=== PATIENT | male | born 1950 | race African-American/Black ===

== ENCOUNTER 2016-12-16 08:34 | Emergency (ER) | payer OTHER ==
[2016-12-16 08:48] VITALS: BP 144/82; PULSE 67; TEMP 98.2; BMI 22.7
[2016-12-16] MEDS ORDERED: IBUPROFEN 600 MG TABLET (FP) PO ONE ×2 (09:22→09:29)
--- NOTE | 2016-12-16 09:26 | PDOC ---
History of Present Illness - General Chief Complaint: Pain Stated Complaint: SWOLLEN RT HAND/possible insect bite Time Seen by Provider: 12/16/16 09:05 History Source: Patient Exam Limitations: No Limitations - History of Present Illness Initial Comments: 12/16/16 09:23 Patient states woke up this morning with swelling and pain to his right hand at the third MCP. Denies recent trauma, injury, changes in exercise or heavy lifting. Occurred: reports: just prior to arrival Severity: reports: mild Past History - Travel Traveled outside of the country in the last 30 days: No Close contact w/someone who was outside of country & ill: No - Past Medical History Allergies/Adverse Reactions: Allergies Allergy/AdvReac Type Severity Reaction Status Date / Time No Known Allergies Allergy Verified 12/16/16 08:38 Home Medications: Ambulatory Orders Ibuprofen 600 mg PO Q6H PRN #30 tablet 12/16/16 Thyroid Disease: Yes - Psycho/Social/Smoking Cessation Hx Suicidal Ideation: No Smoking History: Current every day smoker Number of Cigarettes Smoked Daily: 5 Information on smoking cessation initiated: Yes 'Breaking Loose' booklet given: 12/16/16 Hx Alcohol Use: Yes Drug/Substance Use Hx: No Substance Use Type: None Review of Systems - Review of Systems Able to Perform ROS?: Yes Is the patient limited Luxembourger proficient: Yes Constitutional: Yes: Symptoms Reported, Malaise HEENTM: No: Symptoms Reported Respiratory: No: Symptoms reported Integumentary: No: Symptoms Reported All Other Systems: Reviewed and Negative *Physical Exam - Vital Signs Last Vital Signs Temp Pulse Resp BP Pulse Ox 98.2 F 67 19 144/82 97 12/16/16 08:36 12/16/16 08:36 12/16/16 08:36 12/16/16 08:36 12/16/16 08:36 - Physical Exam General Appearance: Yes: Appropriately Dressed, Apparent Distress HEENT: positive: D[place], Normal ENT Inspection, TMs Normal, Pharynx Normal Neck: positive: Supple. negative: Tender Musculoskeletal: positive: Normal Inspection, Decreased Range of Motion Extremity: positive: Normal Capillary Refill, Swelling (erythema and swelling to ). negative: Normal Inspection (swellign and erythema to third MCP, no sign of puncture wound or intrusion of skin. Is tender at the MCP without streaking, erythema area to dorsum of hand approximately 4 cm), Normal Range of Motion Integumentary: positive: Normal Color, Pale, Swelling Neurologic: positive: caser up II-XII NML intact, Fully Oriented, Alert, Normal Mood/ Affect, Normal Response, Motor Strength 5/5 Progress Note - Progress Note Progress Note: X-ray negative for fractures, foreign bodies, or other bony injury. Tristen wrap applied instructed to keep hand elevated and use anti-inflammatories. Instructed to watch closely for any changes and erythema, worsened swelling or pain, return to emergency department for further evaluation *DC/Admit/Observation/Transfer Diagnosis at time of Disposition: Swelling of hand Qualifiers: Laterality: right Qualified Code(s): M79.89 - Other specified soft tissue disorders - Discharge Dispostion Disposition: HOME Condition at time of disposition: Stable Admit: No - Referrals Referrals: Joel Arana MD [Primary Care Provider] - Don Goncalves MD [Staff Physician] - - Patient Instructions Printed Discharge Instructions: DI for Hand Pain Additional Instructions: Rest, ice to area on and off for 15 minutes 4-6 times a day Avoid heavy lifting or exercise until pain and swelling is resolved or until further directed Keep area highly elevated to reduce swelling Use splints/Tristen wrap as directed Followup with orthopedist in one to 2 days if not improving, if significantly improved may wait one week for followup with orthopedist May use ibuprofen 2-200 mg tablets every 6 hours as needed for pain
== END 2016-12-16 09:39 | disposition home or self-care (01) ==
LOC: JERFT 08:34
DX: M79.89 Other specified soft tissue disorders (principal); F17.210 Nicotine dependence, cigarettes, uncomplicated
CPT/HCPCS: 73130-TC-RT; 99281-25

== ENCOUNTER → 2018-01-08 | Emergency (ER) | payer OTHER ==
[~2018-01-08] MED LIST: FOLIC ACID INJECTION - 1 MG, THIAMINE HCL 100 MG, MULTIVIT INJECTION ADULT 10 ML in SOD... IVPB ONE; HALOPERIDOL LACTATE 5 MG/ML IM ONE; HALOPERIDOL LACTATE 5 MG/ML ONE; LORazepam 2 MG/ML SDV VIAL ONE
--- NOTE | 2018-01-08 20:39 | PDOC ---
History of Present Illness - General Stated Complaint: FELL/HEAD INJURY Time Seen by Provider: 01/08/18 20:30 - History of Present Illness Initial Comments: 01/08/18 20:54 The patient is a 67 year old male with a history of thyroid disease, alcohol abuse who presents for evaluation following a presumed fall. History is limited due to the patient's acute alcohol intoxication. Per the patient's daughter, the patient fell prior to presentation in the ED at home with head trauma without LOC. The patient reports a laceration to his nose, but denies other injuries and otherwise denies fevers, chills, SOB, chest pain, nausea, vomiting, abdominal pain, or changes with urination or bowel movements. Past History - Past Medical History Allergies/Adverse Reactions: Allergies Allergy/AdvReac Type Severity Reaction Status Date / Time No Known Allergies Allergy Verified 01/08/18 20:33 Home Medications: Ambulatory Orders Ibuprofen 600 mg PO Q6H PRN #30 tablet 12/16/16 Thyroid Disease: Yes - Suicide/Smoking/Psychosocial Hx Smoking History: Current every day smoker Number of Cigarettes Smoked Daily: 5 'Breaking Loose' booklet given: 12/16/16 Hx Alcohol Use: Yes Drug/Substance Use Hx: No Substance Use Type: None Review of Systems - Review of Systems Comments:: 01/08/18 20:57 Constitutional: No fevers, chills, fatigue, malaise HEENT: Nose Laceration. No Rhinorrhea, nasal congestion, visual changes Cardiovascular: No chest pain, syncope, palpitations, lightheadedness Respiratory: No Cough, SOB, Hemoptysis, Gastrointestinal: No Abdominal pain, Nausea, Vomiting, Constipation, Diarrhea, Melena Genitourinary: No Dysuria, Frequency, Urgency, Hesitancy, Hematuria, Flank pain Musculoskeletal: No Myalgia, arthralgia Skin: No rashes, itching, bruising, pallor Neurologic: No Headache, Dizziness, Numbness, Weakness, or Tingling Psychiatric: No Hallucinations. No SI or HI *Physical Exam - Physical Exam Comments: 01/08/18 20:57 General Appearance: Nourished. Agitated on exam. Alcohol on Breath. Intoxicated. No Apparent Distress HEENT: EOMI, DAKOTA. 0.5cm superficial laceration to the bridge of the nose. Abrasion noted to the left druze. No Pharyngeal Erythema, Tonsillar Exudate, Tonsillar Erythema Neck: No Cervical Lymphadenopathy or C-spine Tenderness. Respiratory/Chest: Lungs Clear, Normal Breath Sounds. No Crackles, Rales, Rhonchi, Wheezing Cardiovascular: Regular Rhythm, Regular Rate. No Murmur, Gallops, Rubs Gastrointestinal/Abdominal: Normal Bowel Sounds, Soft. No Guarding, Rebound, Tenderness Musculoskeletal: No CVA Tenderness Extremity: Abrasion to the right elbow noted. Normal Capillary Refill Integumentary: Normal Color, Dry, Warm Neurologic: mechanical maintenance worker II-XII NML intact, Fully Oriented, Alert, Normal Mood/Affect, Normal Response, Motor Strength 5/5. Procedures - Laceration/Wound Repair Nose Wound Length: to 2.5 cm Wound Explored: clean, no foreign body present Wound's Depth, Shape: superficial, linear Irrigated w/ Saline: Yes Wound Repaired With: Dermabond Layer Closure: Yes Sterile Dressing Applied: Yes ED Treatment Course - LABORATORY CBC & Chemistry Diagram: 01/08/18 22:00 01/08/18 22:00 Medical Decision Making - Medical Decision Making 01/08/18 20:59 The patient is a 67 year old male with a history of thyroid disease, alcohol abuse who presents for evaluation following a presumed fall. The patient is acutely agitated and aggressive on exam and acutely intoxicated. He was treated with 5mg of IM haldol and 2mg of IM Ativan. We will obtain a head, neck , and facial bone ct to evaluate further for possible etiologies. We will continue to monitor and reassess while here in the ED. 01/08/18 23:40 Head, neck CT are unremarkable as preliminarily read by our traffic personnel supervisor radiologist. Facial bone CT demonstrates a depressed nasal bone fracture as preliminarily read by our traffic personnel supervisor radiologist. CBC, cmp are unremarkable. We will treat the patient with a banana bag and will monitor the patient for sobriety after which he may follow up with ENT. We discussed the results, with the patient's daughter who voiced understanding and is agreeable with the plan. Patient signed out to Dr. Rothman pending reassessment. *DC/Admit/Observation/Transfer Diagnosis at time of Disposition: Nasal bone fracture Qualifiers: Encounter type: initial encounter Fracture type: closed Qualified Code(s): S02.2XXA - Fracture of nasal bones, initial encounter for closed fracture - Discharge Dispostion Condition at time of disposition: Stable Decision to Admit order: No - Referrals Referrals: Solomon Payne MD [Staff Physician] - - Patient Instructions Printed Discharge Instructions: DI for Nose Fracture, DI for Laceration Repair With Dermabond Additional Instructions: Please return to the ER if you experience concerning or worsening symptoms including worsening pain, headache, vomiting. Your CT scan show that you have a nose fracture. You may use tylenol or ibuprofen as needed at home to help manage any pain that you have. You also had a small laceration to your nose that was repaired with dermabond. Please call to schedule a follow up appointment with our ENT specialist Dr. Payne to discuss your ER visit and further management of your symptoms. - Post Discharge Activity
[2018-01-08 20:50] VITALS: BP 134/73; PULSE 77; TEMP 98.8; BMI 22.4
[2018-01-08 22:11] LABS: BASO % 0.7 % (0-2.0); EOS % 0.6 % (0-4.5); HEMATOCRIT 30.5 % (35.4-49); HEMOGLOBIN 10.5 GM/dL (11.7-16.9); LYMPH % 14.3 % (8-40); MCH 33.5 pg (25.7-33.7); MCHC 34.6 g/dl (32.0-35.9); MEAN CELL VOLUME 96.7 fl (80-96); MEAN PLT VOLUME 6.4 fl (7.5-11.1); MONO % 3.3 % (3.8-10.2); NEUT % 81.1 % (42.8-82.8); PLATELET COUNT 296 K/MM3 (134-434); RBC 3.15 M/mm3 (4.00-5.60); RDW 12.8 % (11.9-15.9); WHITE BLOOD COUNT 8.9 K/mm3 (4.0-10.0)
[2018-01-08 22:35] LABS: ALBUMIN 3.4 g/dl (3.4-5.0); ALK PHOS 55 U/L (45-117); ANION GAP 10 MMOL/L (8-16); BILIRUBIN,TOTAL 0.8 mg/dL (0.2-1.0); BLOOD UREA NITROGEN 15 mg/dL (7-18); CALCIUM 8.4 mg/dL (8.5-10.1); CHLORIDE 110 mmol/L (98-107); CO2 24 mmol/L (21-32); GLUCOSE,RANDOM 87 mg/dL (74-106); POTASSIUM 3.3 mmol/L (3.5-5.1); SGOT/AST 22 U/L (15-37); SGPT/ALT 19 U/L (12-78); SODIUM 144 mmol/L (136-145); TOT PROT 7.1 g/dl (6.4-8.2)
--- NOTE | 2018-01-08 22:54 | PDOC ---
Attending Attestation - HPI HPI: 01/08/18 22:55 Patient is a 67 year old male with a significant past medical history of thyroid disease, alcohol abuse, who presents to the ED with complaints of injury that occurred just prior to ED arrival. As per patient's daughter, patient fell just prior to ED arrival at home, hitting his head after fall, prompting her to call EMS to have him brought to the ED for further evaluation. Denies chest pain, Sob. Denies nausea, vomiting. Denies fevers, chills. Denies dysuria, hematuria. Denies constipation, diarrhea. Denies any other symptoms. Allergies: None Social history: Current alcohol use. No smoking. No alcohol. No illicit drugs. Surgical history: None PMD: None <Horacio Lee - Last Filed: 01/08/18 22:55> - Resident Resident Name: WilmaAntonio - ED Attending Attestation I have performed the following: I have examined & evaluated the patient, The case was reviewed & discussed with the resident, I agree w/resident's findings & plan, Exceptions are as noted - Physicial Exam PE: 01/09/18 00:02 thin,intoxicated 67 yo male with AOB BIBA after falling. Daughter lives w him and called 911 01/09/18 00:04 head scalp abrasion,scalp hematoma but no laceration nasal bridge small superficial laceration,swelling neck no cervical tenderness lungs cta b/l cvs [id number] abd flat,nontender ext no edema or no deformity neuro intoxicated,no facial droop 01/10/18 02:11 - Medical Decision Making 01/09/18 01:21 ct scan head : normal exam,no acute intracranial pathology,no bleed,no mass,no shift,no skull fracture ct c spine: no fracture ct facial bones ++ nasal fracture etoh level 180 plan when pt can safely ambulate he will be discharged home <Elana Lazcano - Last Filed: 01/10/18 02:11>
--- NOTE | 2018-01-09 01:30 | PDOC ---
*Physical Exam - Vital Signs Last Vital Signs Temp Pulse Resp BP Pulse Ox 98.8 F 77 18 134/73 100 01/08/18 20:44 01/08/18 20:44 01/08/18 20:44 01/08/18 20:44 01/08/18 20:44 ED Treatment Course - LABORATORY CBC & Chemistry Diagram: 01/08/18 22:00 01/08/18 22:00 - ADDITIONAL ORDERS Additional order review: Laboratory Results 01/08/18 01/08/18 22:00 21:45 Sodium 144 Potassium 3.3 L Chloride 110 H Carbon Dioxide 24 Anion Gap 10 BUN 15 Creatinine 1.0 Creat Clearance w eGFR > 60 Random Glucose 87 Calcium 8.4 L Total Bilirubin 0.8 AST 22 ALT 19 Alkaline Phosphatase 55 Total Protein 7.1 Albumin 3.4 Alcohol, Quantitative 180.23 H* 01/08/18 22:00 RBC 3.15 L MCV 96.7 H MCHC 34.6 RDW 12.8 MPV 6.4 L Neutrophils % 81.1 Lymphocytes % 14.3 Monocytes % 3.3 L Eosinophils % 0.6 Basophils % 0.7 - Medications Given in the ED: ED Medications Discontinued Medications Generic Name Dose Route Start Last Admin Trade Name Freq PRN Reason Stop Dose Admin Haloperidol 5 mg 01/08/18 20:33 01/08/18 20:40 Haldol Injection (Fast Acting) - IM 01/08/18 20:34 5 mg ONCE ONE Administration Lorazepam 2 mg 01/08/18 20:33 01/08/18 20:40 Ativan Injection - IM 01/08/18 20:34 2 mg ONCE ONE Administration Medical Decision Making - Medical Decision Making 01/09/18 01:29 Pt signed out to sc by Dr. Dillon Will observe pt for sobriety. Pt will be d/c 01/09/18 06:52 Pt awake and alert. Is able to ambulate. No nystagmus, no slurred speech. Can be d/c home *DC/Admit/Observation/Transfer Diagnosis at time of Disposition: Nasal bone fracture Qualifiers: Encounter type: initial encounter Fracture type: closed Qualified Code(s): S02.2XXA - Fracture of nasal bones, initial encounter for closed fracture - Discharge Dispostion Disposition: HOME Condition at time of disposition: Stable - Referrals Referrals: Solomon Payne MD [Staff Physician] - - Patient Instructions Printed Discharge Instructions: DI for Nose Fracture, DI for Laceration Repair With Dermabond Additional Instructions: Please return to the ER if you experience concerning or worsening symptoms including worsening pain, headache, vomiting. Your CT scan show that you have a nose fracture. You may use tylenol or ibuprofen as needed at home to help manage any pain that you have. You also had a small laceration to your nose that was repaired with dermabond. Please call to schedule a follow up appointment with our ENT specialist Dr. Payne to discuss your ER visit and further management of your symptoms. - Post Discharge Activity
== END | disposition home or self-care (01) ==
LOC: JER 20:15
PROC: 0HQ1XZZ Repair Face Skin, External Approach (ICD-10-PCS; principal; 2018-01-08)
PROC: 3E033GC Introduction of Other Therapeutic Substance into Peripheral Vein, Percutaneous Approach (ICD-10-PCS; 2018-01-08)
PROC: 3E033GC Introduction of Other Therapeutic Substance into Peripheral Vein, Percutaneous Approach (ICD-10-PCS; 2018-01-08)
PROC: 3E023NZ Introduction of Analgesics, Hypnotics, Sedatives into Muscle, Percutaneous Approach (ICD-10-PCS; 2018-01-08)
PROC: 3E023NZ Introduction of Analgesics, Hypnotics, Sedatives into Muscle, Percutaneous Approach (ICD-10-PCS; 2018-01-08)
PROC: 3E023NZ Introduction of Analgesics, Hypnotics, Sedatives into Muscle, Percutaneous Approach (ICD-10-PCS; 2018-01-08)
PROC: 3E033GC Introduction of Other Therapeutic Substance into Peripheral Vein, Percutaneous Approach (ICD-10-PCS; 2018-01-08)
DX: F10.120 Alcohol abuse with intoxication, uncomplicated (principal); S02.2XXA Fracture of nasal bones, initial encounter for closed fracture; S01.21XA Laceration without foreign body of nose, initial encounter; W18.39XA Other fall on same level, initial encounter; Y93.89 Activity, other specified; Y92.038 Other place in apartment as the place of occurrence of the external cause; Y99.8 Other external cause status; Y90.6 Blood alcohol level of 120-199 mg/100 ml
CPT/HCPCS: 36415; 70450-TC; 70486-TC; 72125-TC; 80053; 80307; 85025; 99283-25; J7030